=== PATIENT | male | born 1995 | race African-American/Black ===

== ENCOUNTER 2022-12-13 17:25 | Emergency (ER) | payer OTHER ==
[~2022-12-13] VITALS: Ht 177.8 cm; Wt 64.9 kg
[2022-12-13 18:50] LABS: BASOPHILS % (AUTO) 0.5 % (0.0-2.0); EOSINOPHILS # (AUTO) 0.1 K/uL (0.0-0.7); EOSINOPHILS % (AUTO) 1.5 % (0.0-6.0); HEMATOCRIT 39 % (39-51); HEMOGLOBIN 12.2 g/dL (13.5-17.5); LYMPHOCYTES # (AUTO) 1.2 K/uL (0.8-4.8); LYMPHOCYTES % (AUTO) 21.9 % (20.0-44.0); MEAN CORPUSCULAR HEMOGLOBIN 23 PG (26.0-33.0); MEAN CORPUSCULAR HGB CONC 32 g/dl (31.0-36.0); MEAN CORPUSCULAR VOLUME 73 fL (80-96); MONOCYTES # (AUTO) 0.4 K/uL (0.1-1.30); MONOCYTES % (AUTO) 6.5 % (2.0-12.0); NEUTROPHILS # (AUTO) 3.9 K/uL (1.8-8.9); NEUTROPHILS % (AUTO) 69.6 % (43.0-81.0); PLATELET COUNT (AUTO) 217 K/uL (150-450); RED BLOOD CELL COUNT(AUTO) 5.33 MIL/uL (4.5-6.0); RED CELL DISTRIBUTION WIDTH 14.7 % (11.5-15.0); WHITE BLOOD COUNT (AUTO) 5.7 K/uL (4.3-11.0)
[2022-12-13 18:55] LABS: APPEARANCE,URINE CLEAR (CLEAR); BILIRUBIN,URINE NEGATIVE (NEGATIVE); BLOOD, URINE NEGATIVE Ery/uL (NEGATIVE); COLOR,URINE YELLOW (YELLOW); KETONES,URINE NEGATIVE (NEGATIVE); LEUKOCYTE ESTERASE ,URINE NEGATIVE (NEGATIVE); NITRITE, URINE NEGATIVE (NEGATIVE); PROTEIN,URINE NEGATIVE (NEGATIVE); UGLUCOSE NEGATIVE (NEGATIVE); UROBILINOGEN,URINE 0.2 EU/dL (0.2)
[2022-12-13 19:11] LABS: AMPHETAMINE, URINE NEGATIVE (NEGATIVE); BARBITURATE, URINE NEGATIVE (NEGATIVE); BENZODIAZEPINE, URINE NEGATIVE (NEGATIVE); CANNABINOID, URINE NEGATIVE (NEGATIVE); COCCAINE, URINE NEGATIVE (NEGATIVE); OPIATE, URINE NEGATIVE (NEGATIVE); PHENCYCLIDINE SCREEN,URINE NEGATIVE (NEGATIVE)
[2022-12-13 19:11] LABS: CALCIUM, SERUM 9.3 mg/dL (8.5-10.1); CARBON DIOXIDE 26 mmol/L (21-32); CHLORIDE 106 mmol/L (98-107); CREATININE 1.2 mg/dL (0.6-1.3); GLUCOSE 82 mg/dL (74-106); SODIUM SERUM 140 mmol/L (136-145); UREA NITROGEN, BLOOD 12 mg/dL (7-18)
[2022-12-13 19:19] LABS: ALANINE AMINOTRANSFERASE 21 U/L (12-78); ALKALINE PHOSPHATASE 51 U/L (46-116); ASPARTATE AMINOTRANSFERASE 14 U/L (15-37); BILIRUBIN,DIRECT 0.1 mg/dL (0.0-0.2); BILIRUBIN,TOTAL 0.2 mg/dL (0.2-1.0)
[2022-12-13 19:20] LABS: ACETAMINOPHEN <10 ug/ml (10-30); ALCOHOL, BLOOD < 3 mg/dL (0-10); SALICYLATE < 2.3 mg/dL (2.8-20.0)
[2022-12-13 21:20] LABS: ANISOCYTOSIS 1+; EOSINOPHILS % (MANUAL) 2 % (0-4); LYMPHOCYTES % (MANUAL) 27 % (16-48); MONOCYTES % (MANUAL) 7 % (0-11.0); NEUTROPHILS % (MANUAL) 64 (42-76); OVALOCYTES RARE; PLATELET ESTIMATE ADEQUATE
[2022-12-13] MEDS ORDERED: LORAZEPAM 1 MG TABLET ONE (21:50)
[2022-12-13] MEDS ORDERED: TRAZODONE 50 MG TABLET ONE (21:51)
[2022-12-13] MEDS ORDERED: TRAZODONE 50 MG TABLET PO ONE (22:00)
[2022-12-13] MEDS ORDERED: LORAZEPAM 1 MG TABLET PO ONE ×2 (22:00)
[2022-12-14] MEDS: LamoTRIgine 100 MG TABLET PO SCH ×2 (15:00→21:42)
[2022-12-14] MEDS ORDERED: ARIPIPRAZOLE 5 MG TABLET PO ONE (15:00)
[2022-12-14] MEDS ORDERED: LamoTRIgine 100 MG TABLET ONE (21:40)
[2022-12-15] MEDS ORDERED: LORAZEPAM 1 MG TABLET PO PRN (09:00)
[2022-12-15] MEDS: ARIPIPRAZOLE 5 MG TABLET PO SCH ×2 (09:39→17:00)
[2022-12-15] MEDS: LamoTRIgine 100 MG TABLET PO SCH (09:39)
[2022-12-15 17:01] VITALS: BP 107/62; TEMP 98.1; O2SAT 100
== END 2022-12-15 17:02 ==
LOC: ER 18:26
DX: R45.850 Homicidal ideations (principal); F32.A Depression, unspecified; Z20.822 Contact with and (suspected) exposure to COVID-19
CPT/HCPCS: 99285; 85025; 80048; 80076; 85007; 81003; 36415; 87426; 80143; 80320; 80307; 87635; C9803 ×2; G0480